=== PATIENT | female | born 1940 | race Caucasian/White ===

== ENCOUNTER → 2016-07-31 | Outpatient (CLI) | payer OTHER ==
[~2016-07-31] MED LIST: ACETAMINOPHEN325 M1 PO; AMITRIPTYLINE H50 M2 PO; AMITRIPTYLINE H50 M3 PO; AMITRIPTYLINE H75 M2 PO; AMITRIPTYLINE PO; ASPIRIN EC81 M1 PO; CARVEDILOL12.5 MG PO; CATAPRES-TTS 10.1 MG TD; CATAPRESS3 PO; CIPROFLOXACIN500 M1 OR; CIPROFLOXACIN500 M3 PO; CITRATE OF MAG296 ML PO; CLONIDINE0.1 PO; COREG CR20 MG PO; COUMADIN 1MG TAB1 M1 PO; COUMADIN 5 MG TA5 M1; DOCUSATE SODIU100 MG PO; DURAGESIC1 EAC2; FENTANYL PA25 MCG/HR TP; FENTANYL PA50 MCG/HR TRANSDERM; FENTANYL1 EAC1 TD; FLUOXETINE HCL10 M1 PO; FUROSEMIDE 20 M20 M1 PO; HYDROCODON-ACE1 EAC7 PO; HYDROCODON-ACE1 EACH PO; HYDROCORTISON28.4 GM RE; KAPVAY0.1 MG PO; KEFLEX500 MG PO; KLOR-CON 10 ER10 MEQ PO; LISINOPRIL-HCT1 EAC1 PO; LOVENOX SQ; NEURONTIN 300300 M1 PO; NEURONTIN 300M300 M2 PO; NORCO 10-325 T1 EACH PO; NYSTATIN 1100000 U/M; NYSTATIN TOP; PREDNISONE 20 M20 M1 PO; PROTONIX40 M1 PO; PROTONIX40 M2 PO; PROZAC 10 MG CA10 M1 PO; SENNA-LAX8.6 MG PO; SIMVASTATIN20 MG PO; STOOL SOFTENER50 MG; STOOL SOFTENER50 MG PO; TRAMADOL 50 MG50 MG PO; ULTRAM 50MG TAB50 MG; VERAPAMIL E.R240 M1 PO; ZESTRIL10 MG PO; ZOCOR 20 MG TAB20 M1 PO; ZOFRAN ODT4 MG PO
== END ==
LOC: MRI 09:07
DX: I67.4 Hypertensive encephalopathy (principal); M54.40 Lumbago with sciatica, unspecified side; R41.3 Other amnesia; G89.29 Other chronic pain

== ENCOUNTER 2018-01-04 10:28 | Emergency (ER) | payer OTHER ==
[~2018-01-04] VITALS: Ht 157.5 cm; Wt 86.2 kg
--- NOTE | ~2018-01-04 | EKG ---
[address] [place] [address] ELECTROCARDIOGRAM REPORT Name: RUDDY CHISHOLM [id number] Admission: 01/04/18 Attend Phys: Discharge: Date of : 39 Report #: [id number] THIS REPORT FOR: //name// [facility] ED Test Date: 2018-01-04 Test Time: 10:54:01 Pat Name: RUDDY CHISHOLM Department: Room: Gender: F Arbitrator: : 1940 Requested By: Gwendolyn Baird Order Number: [id number] MD: Guido Copeland Measurements Intervals [place] Rate: 59 P: -60 LA: 166 QRS: 2 QRSD: 88 T: 60 QT: 447 QTc: 443 Interpretive Statements Sinus rhythm Atrial premature complex Minimal ST depression, diffuse leads more prominent from prior ECG Compared to ECG 06/02/2012 20:09:09 Electronically Signed On 01-04-2018 13:33:31 PROPERTY MAN by Guido Copeland [email or web address] <ELECTRONICALLY SIGNED> By: Guido Copeland MD 01/04/18 1333 1054 [facility] Guido Copeland MD /LILIA
[2018-01-04 11:50] LABS: ABSOLUTE NEUTROPHILS 6.8 thou/uL (1.4-8.2); BASOPHILS 0.7 % (0.0-2.0); EOSINOPHILS 0.1 % (0.0-3.0); HEMATOCRIT 42.6 % (37.0-47.0); HEMOGLOBIN 14.5 gm/dL (12.0-15.0); MCH 29.7 pg (26.0-34.0); MCHC 33.9 g/dL (28.0-37.0); MCV 87.6 fL (80.0-100.0); PLATELET COUNT 181 thou/uL (150-400); POLYS 82.2 % (36.0-66.0); RBC 4.87 mil/uL (4.20-5.00); RDW 14.4 % (10.5-14.5); WBC 8.3 thou/uL (4.0-11.0)
[2018-01-04 12:05] LABS: ANION GAP 12 mmol/L (7-16); BUN 18 mg/dL (7-18); CALCIUM 10.2 mg/dL (8.5-10.1); CHLORIDE 103 mmol/L (98-107); CO2 25 mmol/L (21-32); CREATININE 1.8 mg/dL (0.6-1.0); GLUCOSE 111 mg/dL (74-106); POTASSIUM 3.3 mmol/L (3.5-5.1); SODIUM 140 mmol/L (136-145)
[2018-01-04 12:17] LABS: DIRECT BILIRUBIN < 0.1 mg/dL (<0.1-0.3); LIPASE 160 U/L (73-393); SGOT 21 U/L (15-37); SGPT 14 U/L (30-65); TOTAL BILIRUBIN 0.3 mg/dL (<0.1-1.0); TOTAL PROTEIN 8.2 g/dL (6.4-8.2); TROPONIN-I <0.06 ng/mL (<0.06)
[2018-01-04 13:37] LABS: URINE BILIRUBIN NEGATIVE (Negative); URINE BLOOD TRACE (Negative); URINE CLARITY CLEAR; URINE COLOR YELLOW; URINE GLUCOSE-RANDOM* NEGATIVE (Negative); URINE KETONES NEGATIVE (Negative); URINE LEUKOCYTES-REFLEX NEGATIVE (Negative); URINE NITRITE-REFLEX NEGATIVE (Negative); URINE PROTEIN (DIPSTICK) 1+ (Negative); URINE SPECIFIC GRAVITY 1.015 (1.005-1.035); URINE UROBILINOGEN 0.2 E.U./dl (0.2-1.0)
[2018-01-04 13:56] LABS: BACTERIA-REFLEX None Seen /HPF (None Seen); CASTS None Seen /LPF (None Seen); CRYSTALS None Seen /LPF (None Seen); SQUAMOUS 0-3 Few /LPF (0-3); URINE RBC 0-2 Rare /HPF (0-2); URINE WBC-REFLEX 0-5 Rare /HPF (0-5)
[2018-01-04] MEDS ORDERED: ZOFRAN ODT4 MG PO (14:06)
[2018-01-04 14:54] VITALS: BP 187/76
== END 2018-01-04 14:56 | disposition home or self-care (01) ==
LOC: ER 10:28
PROVIDERS: Emergency Medicine
DX: R11.2 Nausea with vomiting, unspecified (principal); I10 Essential (primary) hypertension; E78.5 Hyperlipidemia, unspecified; F32.9 Major depressive disorder, single episode, unspecified; M54.9 Dorsalgia, unspecified; G89.29 Other chronic pain; Z90.49 Acquired absence of other specified parts of digestive tract; Z86.718 Personal history of other venous thrombosis and embolism; Z96.652 Presence of left artificial knee joint; Z88.5 Allergy status to narcotic agent

== ENCOUNTER 2018-04-06 15:34 | Inpatient (IN) | payer OTHER ==
[~2018-04-06] VITALS: Ht 160 cm; Wt 81.6 kg
--- NOTE | ~2018-04-06 | HC ---
[facility] [place] [address] CONSULTATION Name: RUDDY CHISHOLM Room #: 362-P [facility] IN M.R.#: [id number] Admission: 04/06/18 ������������������ Attend Phys: Shamar Belcher MD Discharge: 04/09/18 ������������������ Date of : 39 Report #: [id number] THIS REPORT FOR: //name// CC: Shamar Belcher REASON FOR CONSULTATION: Acute kidney injury. REASON FOR PRESENTATION: Not feeling well, lethargy. HISTORY OF PRESENT ILLNESS: History is limited as the patient has dementia. Details of the history were obtained from the patient's family members. She is a 78-year-old with past medical history of chronic kidney disease, who used to see Dr. Vera. She is known to have hypertension. She had been seen by Cardiology in the past. Her baseline creatinine looking at her previous records showed that she has been running high creatinine for the last few years. Her best values were in the 1.5-1.8 ratio. She has history of DVT. She has not seen Dr. Vera for the last 1 year. She was followed by the Cardiology team and the Cardiology team has escalated her diuretic regimen by increasing the dose of the furosemide to 80 mg. Metolazone was also added. The patient has been feeling weak ever since with loss of appetite. She presented to the Emergency Room and was found to have a creatinine of 3.1. No other medication changes. No nonsteroidal anti-inflammatory medications. MEDICATIONS: 1. Carvedilol. 2. Losartan. 3. Metolazone. 4. Pantoprazole. 5. Trazodone. 6. Mirtazapine. FAMILY HISTORY: Significant for hypertension. PAST MEDICAL HISTORY: 1. Hypertension. 2. Chronic kidney disease. 3. Appendectomy. 4. Cholecystectomy. 5. Carpal tunnel surgery. 6. Deep venous thrombosis. 7. Left knee replacement. ALLERGIES: MORPHINE. SOCIAL HISTORY: No drug or alcohol abuse. REVIEW OF SYSTEMS: [facility] [address] [place] [address] CONSULTATION Name: RUDDY CHISHOLM Room #: 362-P [facility] IN ..#: [id number] Admission: 04/06/18 ������������������ Attend Phys: Shamar Belcher MD Discharge: 04/09/18 ������������������ Date of : 39 Report #: [id number] GENERAL: Significant for weakness. CARDIOVASCULAR: No chest pain. PULMONARY: No cough or hemoptysis. GASTROINTESTINAL: As per the history of present illness. GENITOURINARY: No frequency, no urgency. MUSCULOSKELETAL: Occasional arthralgias and myalgias in this 78-year-old. PHYSICAL EXAMINATION: VITAL SIGNS: Blood pressure was 149/90. There is one high reading this morning at 190/94. Temperature 36.4. HEAD AND NECK: No jugular venous distention. CHEST: Decreased air entry bilaterally. CARDIOVASCULAR: No rub. ABDOMEN: Soft, nontender. LOWER EXTREMITIES: No edema. LABORATORY DATA: Reviewed. CBC is within normal range. Chemistry showed potassium of 3.2, BUN of 73 and creatinine of 3.1. Total urine output 200 mL. Chest x-ray is clear. ASSESSMENT AND IMPRESSION: 1. Acute kidney injury due to over diuresis. 2. Chronic kidney disease with a baseline creatinine of around 2. 3. Hypertension. PLAN: 1. The patient's worsening renal function is due to over diuresis. We will hold all her diuretics. 2. Obtain cardiac echo. 3. Hold diuretics. 4. Hold angiotensin converting enzyme inhibitor. 5. Bladder scan. 6. Continue to follow electrolytes. 7. Avoid other nephrotoxins. 8. We will continue to follow. ��������������������������������������������� ���������������������������������������� By: ��������������������������������������������� 0826 23 Eyal Santacruz MD /nt
--- NOTE | ~2018-04-06 | HC ---
[facility] [place] [address] CONSULTATION Name: RUDDY CHISHOLM Room #: 362-P [facility] IN M.R.#: [id number] Admission: 04/06/18 ������������������ Attend Phys: Shamar Belcher MD Discharge: ������������������ Date of : 39 Report #: [id number] THIS REPORT FOR: //name// CC: Shamar Belcher DATE OF SERVICE: 04/07/2018 CHIEF COMPLAINT: Weakness, fatigue, kidney injury. HISTORY OF PRESENT ILLNESS: The patient is a 78-year-old female with a history of diastolic heart failure, who was recently discharged from our office with higher dose of Lasix due to increasing lower extremity swelling. She presented with acute kidney injury and a creatinine of 3.1. She is without chest pain or pressure. She has been in and out of congestive heart failure and has been bouncing diuretics. We had increased her Lasix to 80 mg with 3 times weekly metolazone. She has no complaints of palpitations, heart racing or skipping. PAST MEDICAL HISTORY: She has in addition to her kidney injury, an active urinary tract infection. She has diastolic heart failure, abdominal discomfort. HOME MEDICATIONS: Include amitriptyline, Protonix 40 mg daily, carvedilol 12.5 mg p.o. b.i.d., aspirin, Aricept 5 mg daily, Lasix has been held, losartan 50 mg daily, mirtazapine 7.5 mg daily and trazodone. PAST SURGICAL HISTORY: Cholecystectomy and knee replacement. SOCIAL HISTORY: She is not . She is a nonsmoker. She lives with her son. REVIEW OF SYSTEMS: GENERAL: No fevers or chills. PULMONARY: No wheezing or cough. CARDIOVASCULAR: Her edema had resolved. She is without chest pain or pressure. She has chronic shortness of breath. Denies palpitations. HEMATOLOGIC: No anemia or bleeding disorders. RENAL: Positive history of renal insufficiency. ENDOCRINE: Intolerance to cold. PHYSICAL EXAMINATION: VITAL SIGNS: Blood pressure is 188/99, pulse is 81. She is on room air and sats 99%. GENERAL: This is an elderly female. She is in no apparent distress. HEENT: Eyes, EOMs intact. No facial asymmetry. [facility] [address] [place] [address] CONSULTATION Name: RUDDY CHISHOLM Room #: 362-P [facility] IN .R.#: [id number] Admission: 04/06/18 ������������������ Attend Phys: Shamar Belcher MD Discharge: ������������������ Date of : 39 Report #: [id number] NECK: Neck veins are flat. CARDIOVASCULAR: Regular. There is no murmur. LUNGS: Clear to auscultation. ABDOMEN: Nontender. EXTREMITIES: There is no peripheral edema. Chest x-ray shows no acute process. Sodium is 141, potassium 3.2, chloride is 98, BUN is 73, creatinine 3.1. IMPRESSION: 1. Chronic diastolic heart failure. Her diuretics have been held in lieu of her kidney disease. At some point, she may require Lasix, but not at the current time. 2. Acute kidney injury. She is receiving IV fluids. 3. Hypertension. We will continue with current medical therapy. If okay with our Nephrology colleagues, we would continue with her ARB. She will continue with carvedilol. 4. Dementia. ��������������������������������������������� ���������������������������������������� By: ��������������������������������������������� 1513 0622 González Ryder MD, FACC /nt
--- NOTE | ~2018-04-06 | HC ---
[facility] [place] [address] CONSULTATION Name: RUDDY CHISHOLM Room #: 362-P [facility] IN M.R.#: [id number] Admission: 04/06/18 ������������������ Attend Phys: Shamar Belcher MD Discharge: 04/09/18 ������������������ Date of : 39 Report #: [id number] THIS REPORT FOR: //name// CC: Shamar Belcher DATE OF SERVICE: 04/07/2018 REASON FOR CONSULTATION: Acute kidney injury. REASON FOR PRESENTATION: Not feeling well, lethargy. HISTORY OF PRESENT ILLNESS: History is limited as the patient has dementia. Details of the history were obtained from the patient's family members. She is a 78-year-old with past medical history of chronic kidney disease, who used to see Dr. Vera. She is known to have hypertension. She had been seen by Cardiology in the past. Her baseline creatinine looking at her previous records showed that she has been running high creatinine for the last few years. Her best values were in the 1.5 to 1.8 ratio. She has history of DVT. She has not seen Dr. Vera for the last 1 year. She was followed by the Cardiology team and the Cardiology team has escalated her diuretic regimen by increasing the dose of the furosemide to 80 mg. Metolazone was also added. The patient has been feeling weak ever since with loss of appetite. She presented to the Emergency Room and was found to have a creatinine of 3.1. No other medication changes. No nonsteroidal anti-inflammatory medications. MEDICATIONS: 1. Carvedilol. 2. Losartan. 3. Metolazone. 4. Pantoprazole. 5. Trazodone. 6. Mirtazapine. FAMILY HISTORY: Significant for hypertension. PAST MEDICAL HISTORY: 1. Hypertension. 2. Chronic kidney disease. 3. Appendectomy. 4. Cholecystectomy. 5. Carpal tunnel surgery. 6. Deep venous thrombosis. 7. Left knee replacement. ALLERGIES: MORPHINE. [facility] [address] [place] [address] CONSULTATION Name: RUDDY CHISHOLM Room #: 362-[facility] IN [facility].#: [id number] Admission: 04/06/18 ������������������ Attend Phys: Shamar Belcher MD Discharge: 04/09/18 ������������������ Date of : 39 Report #: [id number] SOCIAL HISTORY: No drug or alcohol abuse. REVIEW OF SYSTEMS: GENERAL: Significant for weakness. CARDIOVASCULAR: No chest pain. PULMONARY: No cough or hemoptysis. GASTROINTESTINAL: As per the history of present illness. GENITOURINARY: No frequency, no urgency. MUSCULOSKELETAL: Occasional arthralgias and myalgias in this 78-year-old. PHYSICAL EXAMINATION: VITAL SIGNS: Blood pressure was 149/90. There is one high reading this morning at 190/94. Temperature 36.4. HEAD AND NECK: No jugular venous distention. CHEST: Decreased air entry bilaterally. CARDIOVASCULAR: No rub. ABDOMEN: Soft, nontender. LOWER EXTREMITIES: No edema. LABORATORY DATA: Reviewed. CBC is within normal range. Chemistry showed potassium of 3.2, BUN of 73 and creatinine of 3.1. Total urine output 200 mL. RADIOLOGY DATA: Chest x-ray is clear. ASSESSMENT AND IMPRESSION: 1. Acute kidney injury due to over diuresis. 2. Chronic kidney disease with a baseline creatinine of around 2. 3. Hypertension. PLAN: 1. The patient's worsening renal function is due to over diuresis. We will hold all her diuretics. 2. Obtain cardiac echo. 3. Hold diuretics. 4. Hold angiotensin converting enzyme inhibitor. 5. Bladder scan. 6. Continue to follow electrolytes. 7. Avoid other nephrotoxins. 8. We will continue to follow. ��������������������������������������������� ���������������������������������������� By: ��������������������������������������������� 0826 1746 Eyal Santacruz MD /PMT
[2018-04-06 15:41] VITALS: BP 123/579
[2018-04-06 15:57] LABS: URINE BILIRUBIN NEGATIVE (Negative); URINE BLOOD TRACE (Negative); URINE CLARITY CLEAR; URINE COLOR YELLOW; URINE GLUCOSE-RANDOM* NEGATIVE (Negative); URINE KETONES NEGATIVE (Negative); URINE LEUKOCYTES-REFLEX 1+ (Negative); URINE NITRITE-REFLEX NEGATIVE (Negative); URINE PROTEIN (DIPSTICK) NEGATIVE (Negative); URINE UROBILINOGEN 0.2 E.U./dl (0.2-1.0)
[2018-04-06 16:03] LABS: SQUAMOUS 0-3 Few /LPF (0-3)
[2018-04-06 16:04] LABS: BACTERIA-REFLEX 1-9 Few /HPF (None Seen); CASTS None Seen /LPF (None Seen); CRYSTALS None Seen /LPF (None Seen); HYALINE CASTS 0-3 Few /LPF (None Seen); URINE RBC 0-2 Rare /HPF (0-2); URINE WBC-REFLEX 6-15 Few /HPF (0-5)
[2018-04-06 16:42] LABS: ABSOLUTE NEUTROPHILS 7.5 thou/uL (1.4-8.2); BASOPHILS 1.2 % (0.0-2.0); EOSINOPHILS 1.6 % (0.0-3.0); HEMATOCRIT 42.4 % (37.0-47.0); HEMOGLOBIN 14.4 gm/dL (12.0-15.0); LYMPHOCYTES 16.6 % (24.0-44.0); MCH 29.5 pg (26.0-34.0); MCHC 34.1 g/dL (28.0-37.0); MCV 86.6 fL (80.0-100.0); MONOCYTES 7.2 % (1.0-8.0); PLATELET COUNT 176 thou/uL (150-400); POLYS 73.4 % (36.0-66.0); RBC 4.89 mil/uL (4.20-5.00); WBC 10.2 thou/uL (4.0-11.0)
[2018-04-06 16:51] LABS: ANION GAP 11 mmol/L (7-16); BUN 71 mg/dL (7-18); CALCIUM 9.9 mg/dL (8.5-10.1); CHLORIDE 101 mmol/L (98-107); CO2 25 mmol/L (21-32); CREATININE 3.1 mg/dL (0.6-1.0); GLUCOSE 108 mg/dL (74-106); POTASSIUM 3.7 mmol/L (3.5-5.1); SODIUM 137 mmol/L (136-145)
[2018-04-06 17:00] LABS: ALBUMIN 3.9 g/dL (3.4-5.0); SGOT 25 U/L (15-37); SGPT 18 U/L (30-65); TOTAL BILIRUBIN 0.4 mg/dL (<0.1-1.0); TOTAL PROTEIN 8.1 g/dL (6.4-8.2); TROPONIN-I <0.06 ng/mL (<0.06)
[2018-04-06 18:10] VITALS: BP 129/73
--- NOTE | 2018-04-06 19:13 | NUR ---
REPORT FROM DAY NURSE
[2018-04-06 20:37] VITALS: BP 146/87
[2018-04-06 20:43] VITALS: BP 139/86
[2018-04-06] MEDS ORDERED: LASIX 40 MG TAB40 M2 PO (20:45)
[2018-04-06] MEDS ORDERED: ARICEPT 5 MG TAB5 MG PO (20:45)
[2018-04-06] MEDS ORDERED: MELATONIN1 MG PO (20:46)
[2018-04-06] MEDS ORDERED: COZAAR 25 MG TA25 M2 PO (20:46)
[2018-04-06] MEDS ORDERED: METOLAZONE 2.52.5 M1 PO (20:47)
[2018-04-06] MEDS ORDERED: REMERON15 MG PO (20:47)
[2018-04-06] MEDS ORDERED: POTASSIUM20 PO (20:48)
[2018-04-06] MEDS ORDERED: TRAZODONE HCL50 MG PO (20:48)
[2018-04-06 21:05] VITALS: BP 81/57
--- NOTE | 2018-04-07 03:13 | NUR ---
PT ARRIVED ON UNIT FROM ED AT 2129. ADMITTED WITH UTI--CHF EXACERBATION--ACUTE RENAL FAILURE. COMES FROM HOME WITH SON. TRANSFERS TO BEDSIDE COMMODE WITH GAIT BELT AND ASSIST X2. HALDOL GIVEN FOR AGITATION. SONS AT BEDSIDE. WILL CONTINUE TO PROVIDE FREQUENT OBSERVATION.
[2018-04-07 03:21] VITALS: BP 190/94
[2018-04-07 06:58] LABS: ALBUMIN 4.4 g/dL (3.4-5.0); CALCIUM 9.8 mg/dL (8.5-10.1); CREATININE 3.1 mg/dL (0.6-1.0); PHOSPHORUS 4.2 mg/dL (2.5-4.9); POTASSIUM 3.2 mmol/L (3.5-5.1)
[2018-04-07 09:55] VITALS: BP 188/99
--- NOTE | 2018-04-07 19:52 | EKG ---
[address] [facility] [place] [address] ELECTROCARDIOGRAM REPORT Name: KATHRINERUDDYSTEFAN TOLEDO Room #: 362-P ADM IN M.R.#: [id number] ������������������ Admission: 04/06/18 ������������������ Attend Phys: Shamar Belcher MD Discharge: ������������������ Date of : 39 Report #: [id number] ����������������������������������������������������������������� [id number] THIS REPORT FOR: //name// [facility] ED Test Date: 2018-04-06 Test Time: 16:15:41 Pat Name: RUDDY CHISHOLM Department: Room: 362 Gender: F Mitochondrial Disorders Counselor: sarah : 1940 Requested By: Sue Mendoza Order Number: [id number] MD: Guido Copeland Measurements Intervals [place] Rate: 50 P: 70 CA: 203 QRS: -8 QRSD: 85 T: 139 QT: 464 QTc: 424 Interpretive Statements Sinus rhythm Nonspecific ST-T wave changes Baseline wander in lead(s) I,III,aVL Consider V2 V3 reversal Compared to ECG 01/04/2018 10:54:01 Atrial premature complex(es) no longer present Electronically Signed On 04-07-2018 19:52:43 COLON [employer] RECTAL SURGEON by Guido Copeland [email or web address] ��������������������������������������������� <ELECTRONICALLY SIGNED> ���������������������������������������� By: Guido Copeland MD ��������������������������������������������� 04/07/18 1952 1615 1615 Guido Copeland MD /EPI
[2018-04-07 20:10] VITALS: BP 150/89
[2018-04-08 04:07] LABS: CALCIUM 9.5 mg/dL (8.5-10.1); CREATININE 2.7 mg/dL (0.6-1.0); PHOSPHORUS 4.4 mg/dL (2.5-4.9)
[2018-04-08 04:09] LABS: POTASSIUM 4.5 mmol/L (3.5-5.1)
--- NOTE | 2018-04-08 06:10 | NUR ---
PT TRANSFERRING TO BEDSIDE COMMODE WITH GAIT BELT AND ASSIST X1 AND IS TOLERATING FAIR. DENIES PAIN. RESTING COMFORTABLY. NO NEEDS VOICED. SON AT BEDSIDE. WILL CONTINUE TO PROVIDE FREQUENT OBSERVATION.
[2018-04-08 08:01] VITALS: BP 159/82
--- NOTE | 2018-04-08 14:37 | NUR ---
INITIAL ASSSESSMENT: SW reviewed chart and spoke with nursing. Pt was admitted from home due to CHF/UTI/Acute on chronic renal failure. SW met with pt and dtr, Latanya Clay, at bedside. Introduced role of SW. Pt is alert/orientated to self and place. Per pt's dtr, pt lives at home with her son, Chino. Prior to admission, pt was using a cane or walker for ambulation. Pt uses a w/c when outside of the home. Pt has used HH in the past following a surgery. Pt's dtr was unable to recall name of HH agency. SW discussed discharge needs: possible post-acute placement or HH services. Pt's dtr verbalized understanding. Pt's PCP is Dr. Belcher. SW is following to assist as needed with discharge planning.
[2018-04-08 15:23] VITALS: BP 185/108
--- NOTE | 2018-04-08 18:14 | NUR ---
PATIENT A/O X2. SLEEP MOST OF TIMES. FAMILY AT BEDSIDE. FREQUETLY USE BSC, O DISDRESS NOTED, SLOWLY TOWARDS POC GOALS.
[2018-04-08 19:45] VITALS: BP 188/88
[2018-04-09 05:30] VITALS: BP 174/114
[2018-04-09 06:08] LABS: HEMATOCRIT 42.7 % (37.0-47.0); HEMOGLOBIN 13.9 gm/dL (12.0-15.0); MCH 28.6 pg (26.0-34.0); MCHC 32.6 g/dL (28.0-37.0); MCV 87.9 fL (80.0-100.0); RBC 4.86 mil/uL (4.20-5.00); RDW 14.5 % (10.5-14.5)
[2018-04-09 06:37] LABS: ALBUMIN 3.8 g/dL (3.4-5.0); CALCIUM 10.3 mg/dL (8.5-10.1); PHOSPHORUS 2.4 mg/dL (2.5-4.9); POTASSIUM 3.9 mmol/L (3.5-5.1)
[2018-04-09 06:38] LABS: CREATININE 1.7 mg/dL (0.6-1.0)
--- NOTE | 2018-04-09 07:43 | NUR ---
SLEPT PART OF SHIFT. UP TO COMODE WITH X1 ASSIST FREQUENTLY. SON AT BEDSIDE MOST OF SHIFT AND VERY ATTENTIVE. ORIENT NEEDED. WORKING ON GOALS AND PLAN OF CARE FOR NOC. PROGRESSING TOWARDS DISCHARGE GOALS SLOWLY. SON HOPES TO TAKE MOM HOME TODAY. CONTINUE TO ASSES CLOESLY.
[2018-04-09 07:53] VITALS: BP 163/108
[2018-04-09] MEDS ORDERED: COREG6.25 MG PO (07:59)
[2018-04-09] MEDS ORDERED: SEROQUEL 25 MG25 M1 PO (08:00)
[2018-04-09] MEDS ORDERED: LASIX 40 MG TAB40 M2 PO (08:01)
[2018-04-09 08:33] VITALS: BP 163/108
[2018-04-09 09:45] VITALS: BP 163/108
--- NOTE | 2018-04-09 10:32 | NUR ---
ASSUMED PATIENT CARE AT 0715. A&OX2-3, VERY FLAT AFFECT. CONTACT FLAKITA ASSIST TO COMMODE. PATIENT MOVES VERY SLOWLY. CREATININE IMPROVING. CLEARED FOR DISCHARGE TODAY. DISCHARGING HOME WITH HOME HEALTH. DISCHARGE INSTRUCTIONS DISCUSSED WITH PATIENT AND FAMILY.
--- NOTE | 2018-04-09 12:41 | NUR ---
DISCHARGE NOTE: SW reviewed chart and spoke with nursing. Pt is medically stable for discharge home today. SW faxed discharge orders/summary to [facility] and confirmed orders were received. Contact info for [facility] placed in pt's discharge summary. Pt's family provided transportation home. No additional SW needs identified at this time, but is available to assist should needs arise.
== END 2018-04-09 10:18 | disposition home health service (06) | DRG 682 ==
LOC: ER 15:34 → EROBS 17:43 → 3W 17:43 → ENTRNSPT 04-09 10:04 → EDTRNSPTSTS 04-09 10:09 → 3W 04-09 10:18
PROVIDERS: Hospitalist; Nurse Practitioner Family; ADMIT Family Medicine
DX: N17.9 Acute kidney failure, unspecified (principal); I50.33 Acute on chronic diastolic (congestive) heart failure; G92 Toxic encephalopathy; N39.0 Urinary tract infection, site not specified; I13.0 Hypertensive heart and chronic kidney disease with heart failure and stage 1 through stage 4 chronic kidney disease, or unspecified chronic kidney disease; E78.5 Hyperlipidemia, unspecified; F32.9 Major depressive disorder, single episode, unspecified; Z96.652 Presence of left artificial knee joint; G89.29 Other chronic pain; M54.9 Dorsalgia, unspecified; N18.9 Chronic kidney disease, unspecified; B37.9 Candidiasis, unspecified; F03.90 Unspecified dementia, unspecified severity, without behavioral disturbance, psychotic disturbance, mood disturbance, and anxiety; Z90.49 Acquired absence of other specified parts of digestive tract; Z86.718 Personal history of other venous thrombosis and embolism; Z88.6 Allergy status to analgesic agent
CPT/HCPCS: 10779; 10879

== ENCOUNTER → 2019-01-30 | Outpatient (CLI) | payer OTHER ==
[~2019-01-30] MED LIST changes: +ARICEPT 5 MG TAB5 MG PO; +COREG6.25 MG PO; +COZAAR 25 MG TA25 M2 PO; +LASIX 40 MG TAB40 M2 PO; +MELATONIN1 MG PO; +METOLAZONE 2.52.5 M1 PO; +POTASSIUM20 PO; +REMERON15 MG PO; +SEROQUEL 25 MG25 M1 PO; +TRAZODONE HCL50 MG PO
== END ==
LOC: ULTRA 09:24
DX: M79.604 Pain in right leg (principal); R60.0 Localized edema

== ENCOUNTER → 2019-02-20 | Outpatient (CLI) | payer OTHER | LOC: MRI 12:56 | DX: S83.241A Other tear of medial meniscus, current injury, right knee, initial encounter (principal); M17.11 Unilateral primary osteoarthritis, right knee; M25.461 Effusion, right knee; M71.21 Synovial cyst of popliteal space [Baker], right knee; X58.XXXA Exposure to other specified factors, initial encounter; Y93.89 Activity, other specified; Y92.89 Other specified places as the place of occurrence of the external cause; Y99.8 Other external cause status ==

== ENCOUNTER → 2020-12-21 | Outpatient (CLI) | payer OTHER | LOC: SJCVC 14:03 | PROVIDERS: ATTEND Internal Medicine Cardiovascular Disease | DX: R94.31 Abnormal electrocardiogram [ECG] [EKG] (principal); I44.0 Atrioventricular block, first degree; I48.0 Paroxysmal atrial fibrillation; I49.5 Sick sinus syndrome; I35.1 Nonrheumatic aortic (valve) insufficiency; I50.31 Acute diastolic (congestive) heart failure; I11.0 Hypertensive heart disease with heart failure; E78.5 Hyperlipidemia, unspecified; I87.2 Venous insufficiency (chronic) (peripheral); I70.1 Atherosclerosis of renal artery; E66.9 Obesity, unspecified; G30.9 Alzheimer's disease, unspecified; G43.909 Migraine, unspecified, not intractable, without status migrainosus; Z88.5 Allergy status to narcotic agent; Z79.82 Long term (current) use of aspirin; Z79.899 Other long term (current) drug therapy ==

== ENCOUNTER → 2021-01-18 | Outpatient (CLI) | payer OTHER | LOC: SJCVCIMAG 13:02 | PROVIDERS: ATTEND Internal Medicine Cardiovascular Disease | DX: R94.31 Abnormal electrocardiogram [ECG] [EKG] (principal); I08.8 Other rheumatic multiple valve diseases; I49.9 Cardiac arrhythmia, unspecified; R00.0 Tachycardia, unspecified; I48.0 Paroxysmal atrial fibrillation; I11.0 Hypertensive heart disease with heart failure; I50.9 Heart failure, unspecified; I49.5 Sick sinus syndrome; E78.5 Hyperlipidemia, unspecified; Z82.49 Family history of ischemic heart disease and other diseases of the circulatory system; Z88.5 Allergy status to narcotic agent; Z79.82 Long term (current) use of aspirin; Z79.899 Other long term (current) drug therapy ==